=== PATIENT | male | born 1980 | race Caucasian/White ===

== ENCOUNTER 2017-06-06 05:36 | Day surgery (SDC) | payer OTHER ==
[2017-06-06] MEDS ORDERED: morphine CARPU-JECT 4 MG/1 ML DISP.SYRIN IVPUSH ONE (05:54)
[2017-06-06] MEDS ORDERED: SODIUM CHLORIDE 1,000 ML IV ONE (05:54)
--- NOTE | 2017-06-06 05:54 | PDOC ---
History of Present Illness - General Chief Complaint: Pain, Acute Stated Complaint: ABDOMINAL PAIN Time Seen by Provider: 06/06/17 05:53 History Source: Patient Exam Limitations: No Limitations - History of Present Illness Initial Comments: 06/06/17 05:45 This is a 37-year-old male who comes in complaining of progressive right upper quadrant pain since last night. Patient said that he ate some English food after the pain started and it got significantly worse. Patient denies any fever , chills, nausea, vomiting or diarrhea. Patient said he has had intermittent episodes of similar pain in the past but they always resolved. Patient has never had them worked up. Patient denies any history of gallstones or problems with his gallbladder. Patient said he is otherwise healthy. PAST MEDICAL HISTORY: no significant history PAST SURGICAL HISTORY: no significant history FAMILY HISTORY: no pertinant history SOCIAL HISTORY: Pt lives with family and is employed. MEDICATIONS: reviewed ALLERGIES: As per nursing notes Review of Systems General: No fevers or chills, no weakness, no weight loss HEENT: No change in vision. No sore throat,. No ear pain CardioVascular: No chest pain or shortness of breath Respiratory:No cough, or wheezing. Gastrointestinal: no nausea, vomitting, diarrhea or constipation, No rectal bleeding, right upper quadrant abdominal pain Genitourinary: No dysuria, hematuria, or frequency Musculoskeletal: No joint or muscle pain or swelling Neurologic: No headache, vertigo, dizziness or loss of consciousness Psychiatric: nor depression Skin: No rashes or easy bruising Endocrine: no increased thirst or abnormal weight change Allergic: no skin or latex allergy All other systems reviewed and normal Exam: General: Well-nourished well-developed individual, no acute distress HEENT: Throat: Normal, tonsils normal, no erythema or exudate Neck: Supple, no meningeal signs, no lymphadenopathy Eyes::Pupils equal reactive and round, extraocular motion intact Chest: Nontender to palpation Cardiac: S1-S2 normal, regular rate and rhythm, no murmurs rubs or gallops Respiratory: Lungs clear to auscultation bilateral Abdomen: Soft, nondistended, normal bowel sounds, moderately tender to palpation right upper quadrant no guarding or rebound Extremities: Warm, dry, no cyanosis, clubbing, or edema Skin: No rashes Neuro: Alert and oriented x3, CN II - XII intact, nonfocal exam with normal strength, normal sensation, normal reflexes, normal gait, Psych: Normal mood and affect Medical decision making this is a 37-year-old male who comes in complaining of approximately 12 hours now of right upper quadrant abdominal pain progressive. Differential includes gastritis, cholecystitis, cholelithiasis, hepatitis, viral etiology, colitis, lower lobe pneumonia, cardiac etiology Will obtain workup, calm, lipase, chest x-ray, EKG, ultrasound of gallbladder We'll give IV fluids, pain medication Toradol and morphine and reassess and follow-up results of workup 06:45 Reassessment patient is feeling better with pain medications and fluids. Patient remains clinically stable and improved 06/06/17 07:00 Care of this patient was transferred to Dr. Amato at 7 AM patient is workup is still pending. Case discussed in detail with oncoming Emergency Physician including history, physical exam and ancillary studies. Oncoming Emergency Physician has assumed care for the patient and will complete the evaluation and treatment. Patient is aware of the plan. Pt is clinically unchanged and stable. Past History - Past Medical History Allergies/Adverse Reactions: Allergies Allergy/AdvReac Type Severity Reaction Status Date / Time Penicillins Allergy Severe Rash Verified 06/06/17 05:38 GI Disorders: Yes (ACID REFLUX) - Immunization History Td Vaccination: Yes Immunization Up to Date: (UNSURE) - Suicide/Smoking/Psychosocial Hx Smoking Status: No Smoking History: Current some day smoker Have you smoked in the past 12 months: Yes Number of Cigarettes Smoked Daily: 10 'Breaking Loose' booklet given: 03/13/15 Hx Alcohol Use: Yes (OCCASIONAL) Drug/Substance Use Hx: No *DC/Admit/Observation/Transfer Diagnosis at time of Disposition: Abdominal pain - Discharge Dispostion Condition at time of disposition: Stable - Referrals Referrals: Lavon Jones MD [Primary Care Provider] - - Patient Instructions - Post Discharge Activity
[2017-06-06] MEDS ORDERED: KETOROLAC TROMETHAMINE 30 MG/1 ML VIAL IVPUSH ONE (06:00)
[2017-06-06 06:09] VITALS: BMI 37.1
[2017-06-06 07:51] LABS: BASO % 0.2 % (0-2.0); HEMATOCRIT 41.1 % (35.4-49); HEMOGLOBIN 14.2 GM/dL (11.7-16.9); MCH 29.3 pg (25.7-33.7); MCHC 34.6 g/dl (32.0-35.9); MEAN CELL VOLUME 84.6 fl (80-96); MEAN PLT VOLUME 9.1 fl (7.5-11.1); MONO % 5.8 % (3.8-10.2); PLATELET COUNT 246 K/MM3 (134-434); RBC 4.86 M/mm3 (4.00-5.60); RDW 13.4 % (11.9-15.9)
[2017-06-06 07:55] LABS: LIPASE 133 U/L (73-393)
[2017-06-06 07:57] LABS: ANION GAP 10 (8-16); BLOOD UREA NITROGEN 13 mg/dl (7-18); CHLORIDE 104 mmol/L (98-107); CO2 29 mmol/L (22-28); CREATININE 0.8 mg/dl (0.6-1.3); GLUCOSE,RANDOM 104 mg/dl (74-106); POTASSIUM 3.9 mmol/L (3.5-5.1); SODIUM 143 mmol/L (136-145)
[2017-06-06 07:58] LABS: ALBUMIN 3.8 g/dl (3.5-5.0); ALK PHOS 68 U/L (32-92); BILIRUBIN,TOTAL 0.4 mg/dl (0.2-1.0); SGOT/AST 16 U/L (10-42); SGPT/ALT 37 U/L (10-40)
--- NOTE | 2017-06-06 09:20 | PDOC ---
*Physical Exam - Vital Signs Last Vital Signs Temp Pulse Resp BP Pulse Ox 98.6 F 70 22 138/100 100 06/06/17 05:50 06/06/17 05:50 06/06/17 05:50 06/06/17 05:50 06/06/17 05:50 - Physical Exam General Appearance: Yes: Nourished, Appropriately Dressed, Obese HEENT: positive: KRISTINE Neck: positive: Supple Respiratory/Chest: positive: Lungs Clear Cardiovascular: positive: Regular Rate, S1, S2 Gastrointestinal/Abdominal: positive: Normal Bowel Sounds, Tender, Protuberent, Tenderness (RLQ pain at deep palpation & rebound) Musculoskeletal: positive: Normal Inspection Extremity: positive: Normal Capillary Refill Integumentary: positive: Normal Color, Dry Neurologic: positive: Fully Oriented, Alert ED Treatment Course - LABORATORY CBC & Chemistry Diagram: 06/06/17 05:55 06/06/17 06:21 - ADDITIONAL ORDERS Additional order review: Laboratory Results 06/06/17 06:21 Sodium 143 Potassium 3.9 Chloride 104 Carbon Dioxide 29 H Anion Gap 10 BUN 13 D Creatinine 0.8 Creat Clearance w eGFR > 60 Random Glucose 104 Calcium 9.0 Total Bilirubin 0.4 AST 16 ALT 37 Alkaline Phosphatase 68 Total Protein 7.0 Albumin 3.8 Lipase 133 06/06/17 05:55 RBC 4.86 MCV 84.6 MCHC 34.6 RDW 13.4 MPV 9.1 Neutrophils % 81.0 Lymphocytes % 12.0 Monocytes % 5.8 Eosinophils % 1.0 Basophils % 0.2 - Medications Given in the ED: ED Medications Discontinued Medications Generic Name Dose Route Start Last Admin Trade Name Freq PRN Reason Stop Dose Admin Sodium Chloride 1,000 mls @ 1,000 mls/hr 06/06/17 05:54 06/06/17 06:00 Normal Saline - IV 06/06/17 06:53 1,000 mls/hr .Q1H ONE Administration Ketorolac Tromethamine 30 mg 06/06/17 06:00 06/06/17 06:05 Toradol Injection - IVPUSH 06/06/17 06:01 30 mg ONCE ONE Administration Morphine Sulfate 4 mg 06/06/17 05:54 06/06/17 06:00 Morphine Injection - IVPUSH 06/06/17 05:55 4 mg ONCE ONE Administration Medical Decision Making - Medical Decision Making Patient observed every hour by the hour Pain mostly controlled by previously administered Morphine and Toradol Working diagnosis : RLQ pain suspect apendicitis CT scan abdomen and pelvis with iv contrast ordered 06/06/17 10:04 Abdominal RLQ pain persisting 06/06/17 11:45 CT scan reported AP without perforation Discussed with Dr Jones , Dr Babs Garzon, surgery will admit to OR 06/07/17 14:37 *DC/Admit/Observation/Transfer Diagnosis at time of Disposition: Abdominal pain Qualifiers: Abdominal location: epigastric Qualified Code(s): R10.13 - Epigastric pain Acute appendicitis Qualifiers: Acute appendicitis type: unspecified acute appendicitis type Qualified Code(s) : K35.80 - Unspecified acute appendicitis - Discharge Dispostion Disposition: HOME Condition at time of disposition: Fair Admit: Yes - Referrals - Patient Instructions - Post Discharge Activity
[2017-06-06 10:05] LABS: PH,URINE 8.5 (4.5-8); URINE APPEARANCE Clear; URINE BILIRUBIN Negative (NEGATIVE); URINE BLOOD Negative (NEGATIVE); URINE GLUCOSE (UA) Negative (NEGATIVE); URINE KETONE Negative (NEGATIVE); URINE LEUK ESTERASE Negative (NEGATIVE); URINE NITRITE Negative (NEGATIVE); URINE UROBILINOGEN 0.2 (0.2-1.0)
[2017-06-06 10:17] LABS: URINE COLOR YELLOW; URINE PROTEIN 1+ (NEGATIVE)
[2017-06-06 10:37] LABS: EPI CELLS RARE /HPF; URINE RBC 0-2 /hpf (0-3); URINE WBC 0-2 (0-2)
[2017-06-06 10:38] LABS: URINE BACTERIA NONE SEEN /hpf (NEGATIVE)
[2017-06-06] MEDS ORDERED: SODIUM CHLORIDE 1,000 ML IV SCH (11:30)
[2017-06-06] MEDS ORDERED: BUPIVACAINE HCL/PF 0.5% (5MG/ML) 10 ML VIAL ONE (13:39)
[2017-06-06] MEDS ORDERED: LIDOCAINE HCL 1%, 10 MG/ML (20ML VIAL) ONE (13:39)
--- NOTE | 2017-06-06 14:18 | HP ---
Admitting History and Physical - Primary Care Physician PCP: Lavon Jones - Admission Chief Complaint: epigastric pain, n/v History of Present Illness: 37yo healthy M presents with epigastric pain beginning yesterday evening after dinner of [place] food. Initially thought it was gas, but tried to use bathroom with no results and no improvement. Later began having subjective chills and nausea with some retching/spitting up. Came to ER overnight, where he was afebrile, wbc 12, and was initially thought to have RUQ pain and possibly gallstones. US was done showing no stones or signs of cholecystitis. On further workup, he was noted to have RLQ tenderness and sent for CT, which shows acute appendicitis. He has been hydrated and kept NPO. Pain is better after medication. He is urinating well. Had a very small amount of loose stool yesterday as well. Antibiotics will be given in OR. He also reports sometimes having "stomach problems" after eating large dairy/ fatty meals, with discomfort in epigastric area. History Source: Patient Limitations to Obtaining History: No Limitations - Past Medical History Dermatology: Yes: Other (right knee abscess drained years ago) Additional Past Medical History: glaucoma - Past Surgical History Additional Past Surgical History: right knee abscess drained years ago - Smoking History Smoking history: Former smoker Have you smoked in the past 12 months: Yes Aproximately how many cigarettes per day: 10 (for 20 yrs) If you are a former smoker, when did you quit?: 2016 - Alcohol/Substance Use Hx Alcohol Use: Yes (OCCASIONAL) History of Substance Use: reports: None - Social History Usual Living Arrangement: Yes: With Significant Other ADL: Independent Occupation: construction Home Medications - Allergies Allergies/Adverse Reactions: Allergies Allergy/AdvReac Type Severity Reaction Status Date / Time Penicillins Allergy Severe Rash Verified 06/06/17 05:38 - Home Medications Home Medications: Ambulatory Orders Latanoprost 0.005% Eye Drops [Xalatan 0.005% Eye Drops -] 1 drop OU DAILY Family Disease History - Family Disease History Family Disease History: Diabetes: Father, Heart Disease: Grandparent Review of Systems - Review of Systems Constitutional: reports: Chills. denies: Fever, Loss of Appetite Eyes: reports: Other (wears glasses). denies: Recent Change in Vision HENT: denies: Difficult Swallowing, Hearing Loss, Nasal Congestion, Throat Pain Neck: denies: Swollen Glands, Tenderness Cardiovascular: denies: Chest Pain, Palpitations Respiratory: denies: Cough, SOB Gastrointestinal: reports: Abdominal Pain (with hpi), Nausea (with hpi), Vomiting (with hpi). denies: Constipation, Diarrhea Genitourinary: denies: Burning, Dysuria Musculoskeletal: denies: Back Pain, Joint Pain, Muscle Pain Integumentary: denies: Change in Color, Rash Neurological: reports: Dizziness (occasional). denies: Headache Psychiatric: denies: Anxiety, Depression Physical Examination Vital Signs: Vital Signs Temperature 98.4 F 06/06/17 10:30 Pulse Rate 70 06/06/17 10:30 Respiratory Rate 17 06/06/17 10:30 Blood Pressure 126/79 06/06/17 10:30 O2 Sat by Pulse Oximetry (%) 96 06/06/17 10:30 Constitutional: Yes: No Distress, Calm, Obese Eyes: Yes: Conjunctiva Clear, EOM Intact HENT: Yes: Atraumatic, Normocephalic Neck: Yes: Supple, Trachea Midline Cardiovascular: Yes: Tachycardia. No: Pulse Irregular, Murmur Respiratory: Yes: Regular, CTA Bilaterally Gastrointestinal: Yes: Soft, Abdomen, Obese, Hypoactive Bowel Sounds, Tenderness (RLQ with mild RUQ/epigastric, no R/G) ...Rectal Exam: Yes: Deferred Renal/: No: CVA Tenderness - Left, CVA Tenderness - Right Musculoskeletal: No: Joint Stiffness, Joint Swelling Extremities: No: Cool, Cyanosis Peripheral Pulses WNL: Yes Integumentary: No: Jaundice, Rash Neurological: Yes: Alert, Oriented Psychiatric: Yes: Alert, Oriented Labs: CBC, BMP 06/06/17 05:55 06/06/17 06:21 CMP Sodium 143 mmol/L (136-145) 06/06/17 06:21 Potassium 3.9 mmol/L (3.5-5.1) 06/06/17 06:21 Chloride 104 mmol/L (98-107) 06/06/17 06:21 Carbon Dioxide 29 mmol/L (22-28) H 06/06/17 06:21 Anion Gap 10 (8-16) 06/06/17 06:21 BUN 13 mg/dl (7-18) D 06/06/17 06:21 Creatinine 0.8 mg/dl (0.6-1.3) 06/06/17 06:21 Creat Clearance w eGFR > 60 (>60) 06/06/17 06:21 Random Glucose 104 mg/dl (74-106) 06/06/17 06:21 Calcium 9.0 mg/dl (8.4-10.2) 06/06/17 06:21 Total Bilirubin 0.4 mg/dl (0.2-1.0) 06/06/17 06:21 AST 16 U/L (10-42) 06/06/17 06:21 ALT 37 U/L (10-40) 06/06/17 06:21 Alkaline Phosphatase 68 U/L (32-92) 06/06/17 06:21 Total Protein 7.0 g/dl (6.4-8.3) 06/06/17 06:21 Albumin 3.8 g/dl (3.5-5.0) 06/06/17 06:21 Lipase 133 U/L (73-393) 06/06/17 06:21 Urine Test Results Urine Color Yellow 06/06/17 09:36 Urine Appearance Clear 06/06/17 09:36 Urine pH 8.5 (4.5-8) H D 06/06/17 09:36 Ur Specific [place] 1.020 (1.005-1.025) 06/06/17 09:36 Urine Protein 1+ (NEGATIVE) H 06/06/17 09:36 Urine Glucose (UA) Negative (NEGATIVE) 06/06/17 09:36 Urine Ketones Negative (NEGATIVE) 06/06/17 09:36 Urine Blood Negative (NEGATIVE) 06/06/17 09:36 Urine Nitrite Negative (NEGATIVE) 06/06/17 09:36 Urine Bilirubin Negative (NEGATIVE) 06/06/17 09:36 Ur Leukocyte Esterase Negative (NEGATIVE) 06/06/17 09:36 Urine RBC 0-2 /hpf (0-3) 06/06/17 09:36 Urine WBC 0-2 (0-2) 06/06/17 09:36 Ur Epithelial Cells Rare /HPF 06/06/17 09:36 Urine Bacteria None seen /hpf (NEGATIVE) 06/06/17 09:36 Imaging - Results Cat Scan: Image Reviewed (images personally reviewed - shows appendicitis, no abscess or perforation) Ultrasound: Report Reviewed Problem List - Problems (1) Acute appendicitis Assessment/Plan: admit to surgery 23H/satellite NPO/IVF until postop periop antibiotics pain meds prn Discussed with patient risks, benefits and alternatives of laparoscopic possible open appendectomy, including but not limited to bleeding, infection, injury to adjacent structures, leak or injury, intraabdominal abscess, need for further procedures, ; alternatives include antibiotics, delayed or no surgery - risks of this include failure of nonoperative therapy, perforation, sepsis, recurrence, . Patient desires to proceed with operation - will take to OR for above. Informed consent signed for same. DVT prophylaxis Code(s): K35.80 - UNSPECIFIED ACUTE APPENDICITIS Qualifiers: Acute appendicitis type: unspecified acute appendicitis type Qualified Code (s): K35.80 - Unspecified acute appendicitis (2) Abdominal pain Code(s): R10.9 - UNSPECIFIED ABDOMINAL PAIN Qualifiers: Abdominal location: epigastric Qualified Code(s): R10.13 - Epigastric pain (3) Obesity Code(s): E66.9 - OBESITY, UNSPECIFIED Qualifiers: Obesity type: due to excess calories Obesity classification: adult class 2 (BMI 35 - 39.9) Serious obesity comorbidity presence: without serious comorbidity Body mass index: BMI 37.0-37.9 Qualified Code(s): E66.09 - Other obesity due to excess calories; Z68.37 - Body mass index (BMI) 37.0-37.9, adult; Z68.37 - Body mass index (BMI) 37.0-37.9, adult (4) Glaucoma Assessment/Plan: continue home eye drops Code(s): H40.9 - UNSPECIFIED GLAUCOMA Qualifiers: Glaucoma type: unspecified Laterality: unspecified laterality Qualified Code(s): H40.9 - Unspecified glaucoma
[2017-06-06] MEDS ORDERED: PROPOFOL 20 ML ONE (14:42)
[2017-06-06] MEDS ORDERED: MIDAZOLAM HCL 2 MG/2 ML SINGLE DOSE VIAL ONE (14:42)
[2017-06-06] MEDS ORDERED: fentaNYL CITRATE 250 MCG/5 ML VIAL ONE (14:42)
[2017-06-06] MEDS ORDERED: ROCURONIUM BROMIDE 50 MG/5 ML VIAL ONE (14:54)
[2017-06-06] MEDS ORDERED: BUPIVACAINE HCL/PF 0.5% (5MG/ML) 10 ML VIAL IJ ONE ×2 (15:31→16:40)
[2017-06-06] MEDS ORDERED: LIDOCAINE HCL 1%, 10 MG/ML (20ML VIAL) INF ONE ×2 (15:32→16:40)
[2017-06-06] MEDS ORDERED: BENZOIN/ALOE VERA/STORAX/TOLU 58 ML BOTTLE ONE (16:27)
[2017-06-06] MEDS ORDERED: LIDOCAINE HCL 2% JELLY (5 ML/TUBE) ONE (16:28)
[2017-06-06] MEDS ORDERED: NEOSTIGMINE METHYLSULFATE 0.5 MG/ML - 10 ML MDV ONE (16:28)
[2017-06-06] MEDS ORDERED: ONDANSETRON 4 MG/2 ML VIAL ONE (16:30)
[2017-06-06] MEDS ORDERED: DEXAMETHASONE SOD PHOSPHATE 4 MG/1 ML VIAL ONE (16:30)
[2017-06-06] MEDS ORDERED: KETOROLAC TROMETHAMINE 30 MG/1 ML VIAL ONE (16:30)
[2017-06-06] MEDS ORDERED: ONDANSETRON 4 MG/2 ML VIAL IVPUSH PRN (17:03)
[2017-06-06] MEDS ORDERED: oxyCODONE HCL 5 MG TABLET PO PRN ×3 (17:03→17:29)
[2017-06-06] MEDS ORDERED: PROMETHAZINE HCL 25 MG/1 ML VIAL IVPUSH PRN (17:03)
[2017-06-06] MEDS ORDERED: D5-1/2NS+20 MEQ KCL - 20 MEQ/1,000 ML INFUS.BAG IV SCH (17:30)
--- NOTE | 2017-06-06 17:36 | OP ---
Operative Note - Note: Operative Date: 06/06/17 Pre-Operative Diagnosis: acute appendicitis Operation: laparoscopic appendectomy Findings: inflamed appendix, normal base Post-Operative Diagnosis: Same as Pre-op Surgeon: Robbie Garzon Anesthesiologist/PERSONAL COMPANION: Ramon Rodriguez Anesthesia: General, Local (10ml 1% lidocaine + 0.5% marcaine) Specimens Removed: appendix to pathology Estimated Blood Loss (mls): 5 Drains & Tubes with Location: Bailey removed at end of case Drains, Volume Out (mls): 35 (UOP) Fluid Volume Replaced (mls): 600 (crystalloid) Operative Report Dictated: Yes
[2017-06-06] MEDS: ACETAMINOPHEN 325 MG TABLET (FP) PO SCH (20:00)
[2017-06-06] MEDS ORDERED: LATANOPROST 0.005% OPHTH SOLN 2.5ML BOTTLE OU SCH (22:00)
[2017-06-06] MEDS: IBUPROFEN 600 MG TABLET (FP) PO SCH (22:12)
[2017-06-06] MEDS ORDERED: PT OWN MED DRAWER 7, Y5N ONE (23:56)
[2017-06-07] MEDS: ACETAMINOPHEN 325 MG TABLET (FP) PO SCH ×2 (00:59→07:25)
[2017-06-07] MEDS ORDERED: DEXTROSE 5%-0.45% SALINE 1,000 ML with POTASSIUM CHLORIDE 20 MEQ IVPB ONE (03:00)
[2017-06-07] MEDS: IBUPROFEN 600 MG TABLET (FP) PO SCH ×2 (05:00→09:16)
[2017-06-07 06:42] VITALS: BP 112/57; PULSE 59; TEMP 98.6
--- NOTE | 2017-06-07 09:31 | DS ---
Physical Examination Vital Signs: Vital Signs Temperature 98.6 F 06/07/17 05:00 Pulse Rate 59 L 06/07/17 05:00 Respiratory Rate 16 06/07/17 08:46 Blood Pressure 112/57 06/07/17 05:00 O2 Sat by Pulse Oximetry (%) 97 06/07/17 08:48 Findings/Remarks: Pt seen and examined in bed. Has been up and walking, using IS. Tolerated breakfast, voided, no flatus or BM yet. Pain minimal on alternating Tyl/ ibuprofen. No nausea or fever. No specific complaints. Constitutional: Yes: Well Nourished, No Distress, Calm Eyes: Yes: Conjunctiva Clear, EOM Intact HENT: Yes: Atraumatic, Normocephalic Cardiovascular: Yes: Regular Rate and Rhythm. No: Murmur Respiratory: Yes: Regular, CTA Bilaterally Gastrointestinal: Yes: Normal Bowel Sounds, Soft, Abdomen, Obese, Distention ( mild-mod), Tenderness (mild incisional, mainly at umbilicus, very mild at RLQ) ...Rectal Exam: Yes: Deferred Musculoskeletal: No: Joint Stiffness, Joint Swelling Extremities: No: Cool, Cyanosis Integumentary: Yes: Incision (x3 dressed). No: Jaundice, Rash Wound/Incision: Yes: Steri Strips (under dressings), Dressing Dry and Intact (x3 ). No: Dressing Removed Neurological: Yes: Alert, Oriented Psychiatric: Yes: Alert, Oriented Labs: no new labs Discharge Summary Reason For Visit: ACUTE APPENDICITIS Current Active Problems Abdominal pain (Acute) Acute appendicitis (Acute) Glaucoma (Acute) Obesity (Acute) Procedures: Principal: laparoscopic appendectomy Hospital Course: 37yo generally healthy M presented with 1 day of epigastric/central abdominal pain associated with nausea and some retching, mild subjective chills, and was found to have acute appendicitis on CT with wbc 12. He was taken for uneventful laparoscopic appendectomy with perioperative antibiotics (2 doses Ertapenem). Postop course has been unremarkable; he is ambulating, voiding, tolerating diet , and pain is minimal and controlled with Tylenol and Ibuprofen. He is discharged home to follow up in 2 weeks and with PMD. Total time spent on discharge is 35 minutes. Condition: Good - Instructions Diet, Activity, Other Instructions: Postoperative instructions: You had a laparoscopic appendectomy on 06/06/[address] Robbie Garzon of [facility]. Activity: Resume your usual activities gradually, but no heavy exertion or lifting more than 10-20 pounds for 1 month. Remove dressings 48 hours after surgery; sticky tapes underneath will fall off by themselves. You may shower daily starting then, just pat the incision areas dry. No bath or swimming until skin incisions have healed. Eat lightly at first, but advance to your usual diet as tolerated. Pain: For pain, you may use and alternate Tylenol (acetaminophen) and/or ibuprofen every 6 hours each as needed; this means that you can take one OR the other at 3-hour intervals. Do not take more than 4000mg of acetaminophen in a day. Take medications as prescribed or indicated on the labeling. Follow-up: Call Dr. Garzon's office at [phone] to make your postop appointment (~2 weeks after surgery). Clinic is held in the [facility] on the first floor of [facility]. Call the office if you have: * increasing pain not responsive to pain medication * fever of 101F or higher * vomiting * unusual or increasing bleeding or drainage from wounds * increasing redness or swelling at wound sites * inability to urinate Also, see your primary medical doctor within 1-2 weeks. Referrals: Robbie Garzon MD [Staff Physician] - Lavon Jones MD [Primary Care Provider] - Disposition: HOME - Home Medications Comprehensive Discharge Medication List: Ambulatory Orders Latanoprost 0.005% Eye Drops [Xalatan 0.005% Eye Drops -] 1 drop OU DAILY Acetaminophen [Tylenol .Regular Strength -] 650 mg PO Q6H prn tablet 06/07/17 Ibuprofen [Motrin -] 600 mg PO Q6H prn tablet 06/07/17
--- NOTE | 2017-06-07 09:57 | EKG ---
Test Reason : Blood Pressure : / mmHG Vent. Rate : 069 BPM Atrial Rate : 069 BPM P-R Int : 164 ms QRS Dur : 094 ms QT Int : 400 ms P-R-T Axes : 029 028 039 degrees QTc Int : 428 ms NORMAL SINUS RHYTHM NORMAL ECG NO PREVIOUS ECGS AVAILABLE Confirmed by CARRIE VASQUEZ MD ([id number]) on 06/07/2017 9:57:37 AM Referred By: Salty VAZQUEZ Confirmed By:CARRIE VASQUEZ MD
[2017-06-07] MEDS ORDERED: ERTAPENEM SODIUM 1 GM/50 ML PRE-DOCKED IVPB ONE (10:00)
[2017-06-07] MEDS ORDERED: PT OWN MED DRAWER 7, Y5N ONE (10:36)
--- NOTE | 2017-06-08 15:10 | PATH ---
Surgical Pathology Report Patient Name: LASHON LOYA Med. Rec. #: [id number] /Age/Gender: 1980 (Age: 37) / M Account: [id number] Location: [facility] Taken: 06/06/2017 Received: 06/06/2017 Reported: 06/08/2017 Physicians: Robbie Garzon M.D. Specimen(s) Received APPENDIX Clinical History Acute appendicitis Final Diagnosis APPENDIX, APPENDECTOMY: ACUTE APPENDICITIS AND PERIAPPENDICITIS. Electronically Signed Rhonda Yusuf M.D. Gross Description Received in formalin, labeled "appendix" is a 6.6 x 0.8 x 0.6 cm appendix with attached periappendiceal fat. A purulent exudate is noted in the distal third of the other aspect of the appendix. Sectioning reveals a lumen distended with fecalith and brown hemorrhagic material. Candles Pourer sections are submitted in one cassette. ebram/06/07/2017
== END 2017-06-07 10:39 | disposition home or self-care (01) ==
LOC: FER 05:36 → FASU 13:54 → FM/S 19:02 → FASU 06-07 10:39
PROVIDERS: ATTEND Surgery
PROC: 0DTJ4ZZ Resection of Appendix, Percutaneous Endoscopic Approach (ICD-10-PCS; principal; 2017-06-06 15:28)
DX: K35.89 Other acute appendicitis (principal)
CPT/HCPCS: 36415; 71045-TC-FY; 74177-TC; 76705-TC; 80053; 81003; 81015; 83690; 85025; 88304-TC; 93005; 94760; 99282-25; J7030

== ENCOUNTER 2021-11-17 17:46 | Emergency (ER) | payer OTHER ==
[2021-11-17] MEDS ORDERED: ONDANSETRON 4 MG TABLET PO ONE (17:50)
[2021-11-17 18:09] VITALS: BP 127/90; PULSE 63; RESP 20; TEMP 98.1; BMI 25.0
== END 2021-11-17 18:15 | disposition left against medical advice (07) ==
LOC: FER 17:46
DX: R11.0 Nausea (principal)
CPT/HCPCS: 99283-25; 99284-25

== ENCOUNTER 2023-04-08 11:17 | Emergency (ER) | payer OTHER ==
[2023-04-08 11:28] VITALS: BP 155/98; PULSE 104; RESP 17; TEMP 99.5; BMI 28.2
== END 2023-04-08 12:00 | disposition home or self-care (01) ==
LOC: FER 11:17
DX: R09.81 Nasal congestion (principal); R50.9 Fever, unspecified; J01.00 Acute maxillary sinusitis, unspecified
CPT/HCPCS: 99283-25